=== PATIENT | female | born 1985 | race American Indian/Alaskan Native ===

== ENCOUNTER → 2016-10-10 | Outpatient (CLI) | payer SELFPAY | END | disposition home or self-care (01) | LOC: MW.CHFP 13:23 | PROVIDERS: ATTEND Physician Assistant | DX: J02.9 Acute pharyngitis, unspecified (principal) | CPT/HCPCS: 87880 ==

== ENCOUNTER → 2016-10-31 | Outpatient (CLI) | payer BC | END | disposition home or self-care (01) | LOC: MW.CHFP 13:04 | PROVIDERS: ATTEND Student in an Organized Health Care Education/Training Program | DX: R30.0 Dysuria (principal); R35.0 Frequency of micturition; N39.0 Urinary tract infection, site not specified | CPT/HCPCS: 81001; 87086; 87088; 87186 ==

== ENCOUNTER 2017-04-02 17:52 | Emergency (ER) | payer BC ==
[2017-04-02] MEDS ORDERED: Albuterol/Ipratropium 3.0-0.5 MG/3 ML Neb Soln NEB ONE (18:07)
[2017-04-02] MEDS ORDERED: Sodium Chloride 0.9% 10 ML Syringe FLUSH PRN (18:08)
[2017-04-02] MEDS ORDERED: Sodium Chloride 0.9% 2.5 ML Syringe FLUSH PRN (18:08)
--- NOTE | 2017-04-02 18:10 | EDM.PDOC ---
ED HPI GENERAL MEDICAL PROBLEM - General Chief Complaint: Respiratory Problem Stated Complaint: TROUBLE BREATHING Time Seen by Provider: 04/02/17 18:08 Source of Information: Reports: Patient History Limitations: Reports: No Limitations - History of Present Illness INITIAL COMMENTS - FREE TEXT/NARRATIVE: HISTORY AND PHYSICAL: []31-year-old female presenting with difficulty breathing History of Present Illness: []Patient has been coughing and sick for several days History of having bronchitis Review of Systems: As per history of present illness and below otherwise all systems reviewed and negative. Past medical history: As per history of present illness and as reviewed below otherwise noncontributory. Surgical history: As per history of present illness and as reviewed below otherwise noncontributory. Social history: No reported history of drug or alcohol abuse. Family history: As per history of present illness and as reviewed below otherwise noncontributory. Physical exam: Alert and oriented female answering questions in 3 word sentences wheezing is present. She does look nontoxic HEENT: Atraumatic, normocehpalic, pupils reactive, negative for conjunctival pallor or scleral icterus, mucous membranes moist, throat clear, neck supple, nontender, trachea midline. Palate membranes without erythema pharynx is erythematous Lungs: Crackles on auscultation, breath sounds equal bilaterally, chest non tender. Using is present Heart: S1S2, regular, negative for clicks, rubs, or JVD. Abdomen: Soft, nondistended, nontender. Negative for masses or hepatossplenmegaly. Negative for costovertebral tenderness. Pelvis: Stable nontender. Genitourinary: Deferred. Rectal: Deferred Extremities: Atraumatic, negative for cords or calf pain. Neurovascular unremarkable. Neuro: Awake, alert, oriented. Cranial nerves II through XII unremarkable. Cerebellum unremarkable. Motor and sensory unremarkable throughout. Exam nonfocal. Discussed with patient the negative chest x-ray for no pneumonia no other infiltrates or concerns. White count is elevated Diagnostics: [CBC CMP chest x-ray] Therapeutics: [DuoNeb] Impression: [Acute bronchitis] Plan: [Discharged to home Keep your appointment with Dr. Moss tomorrow as previously scheduled PREScriptions electronically sent to [facility]] Medrol dose pack Tessalon Perles Azithromycin Albuterol inhaler Definitive disposition and diagnosis as appropriate pending reevaluation and review of above. right ear Pain Score (Numeric/FACES): 7 - Related Data Allergies Allergy/AdvReac Type Severity Reaction Status Date / Time No Known Allergies Allergy Verified 04/02/17 18:00 Home Meds: Home Meds Albuterol Sulfate [Proair Hfa] 8.5 gm IH Q4HR PRN #1 hfa.aer.ad 04/02/17 [Rx] Azithromycin [IJD: Azithromycin] 250 mg PO DAILY #6 tab 04/02/17 [Rx] Benzonatate [Tessalon Perles] 100 mg PO QID PRN #40 cap 04/02/17 [Rx] Levothyroxine [Synthroid] 100 mcg PO ACBREAKFAST 04/02/17 [History] methylPREDNISolone [Medrol] 4 mg PO ASDIRECTED #1 dosepk 04/02/17 [Rx] Past Medical History - Past Health History Medical/Surgical History: Denies Medical/Surgical History Respiratory History: Reports: Bronchitis, Recurrent Endocrine/Metabolic History: Reports: Hypothyroidism Social & Family History - Family History Family Medical History: Noncontributory - Tobacco Use Smoking Status *Q: Current Every Day Smoker Years of Tobacco use: 11 Packs/Tins Daily: 1 - Recreational Drug Use Recreational Drug Use: No ED ROS GENERAL - Review of Systems Review Of Systems: ROS reveals no pertinent complaints other than HPI. ED EXAM, GENERAL - Physical Exam Exam: See Below (See dictation) Course - Vital Signs Last Recorded V/S: Last Vital Signs Temp 36.5 C 04/02/17 17:52 Pulse 99 04/02/17 17:52 Resp 20 04/02/17 17:52 BP 126/77 04/02/17 17:52 Pulse Ox 95 04/02/17 17:52 - Orders/Labs/Meds Orders: Active Orders 24 hr Category Date Time Status RT Aerosol Therapy [RC] ASDIRECTED Care 04/02/17 18:08 Active Chest 2V [CR] Stat Exams 04/02/17 18:08 Taken Sodium Chloride 0.9% [Saline Flush] Med 04/02/17 18:08 Active 10 ml FLUSH ASDIRECTED PRN Sodium Chloride 0.9% [Saline Flush] Med 04/02/17 18:08 Active 2.5 ml FLUSH ASDIRECTED PRN Saline Lock Insert [OM.PC] Stat Oth 04/02/17 18:08 Ordered Medication Orders Sodium Chloride (Saline Flush) 10 ml FLUSH ASDIRECTED PRN PRN Reason: Keep Vein Open Last Admin: 04/02/17 18:26 Dose: 10 ml Sodium Chloride (Saline Flush) 2.5 ml FLUSH ASDIRECTED PRN PRN Reason: Keep Vein Open Last Admin: 04/02/17 18:26 Dose: 2.5 ml Labs: Laboratory Tests 04/02/17 04/02/17 04/02/17 Range/Units 18:20 18:20 18:55 WBC 14.51 H (4.0-11.0) K/uL RBC 4.30 (4.30-5.90) M/uL Hgb 13.7 (12.0-16.0) g/dL Hct 38.9 (36.0-46.0) % MCV 90.5 (80.0-98.0) fL MCH 31.9 (27.0-32.0) pg MCHC 35.2 (31.0-37.0) g/dL RDW Std Deviation 40.9 (28.0-62.0) fl RDW Coeff of Oliverio 12 (11.0-15.0) % Plt Count 316 (150-400) K/uL MPV 10.30 (7.40-12.00) fL Neut % (Auto) 69.5 (48.0-80.0) % Lymph % (Auto) 21.6 (16.0-40.0) % [place] % (Auto) 5.4 (0.0-15.0) % Eos % (Auto) 3.2 (0.0-7.0) % Baso % (Auto) 0.3 (0.0-1.5) % Neut # (Auto) 10.1 H (1.4-5.7) K/uL Lymph # (Auto) 3.1 H (0.6-2.4) K/uL [place] # (Auto) 0.8 (0.0-0.8) K/uL Eos # (Auto) 0.5 (0.0-0.7) K/uL Baso # (Auto) 0.1 (0.0-0.1) K/uL Nucleated RBC % 0.0 /100WBC Nucleated RBCs # 0 K/uL Sodium 139 (136-146) mmol/L Potassium 3.9 (3.5-5.1) mmol/L Chloride 109 (98-110) mmol/L Carbon Dioxide 21 (21-31) mmol/L BUN 12 (6.0-23.0) mg/dL Creatinine 0.9 (0.6-1.5) mg/dL Est Cr Clr Drug Dosing 89.69 mL/min Estimated GFR (MDRD) > 60.0 ml/min Glucose 96 (60-110) mg/dL Calcium 9.6 (8.8-10.8) mg/dL Total Bilirubin 0.5 (0.1-1.5) mg/dL AST 28 (5-40) IU/L ALT 44 (8-54) IU/L Alkaline Phosphatase 67 (40-150) Total Protein 7.4 (6.0-8.0) g/dL Albumin 4.0 (3.5-5.0) g/dL Globulin 3.4 (2.0-3.5) g/dL Albumin/Globulin Ratio 1.2 L (1.3-2.8) Urine HCG, Qual NEGATIVE (NEGATIVE) Meds: Medications Generic Name Dose Route Start Last Admin Trade Name Freq PRN Reason Stop Dose Admin Sodium Chloride 10 ml 04/02/17 18:08 04/02/17 18:26 Saline Flush FLUSH 10 ml ASDIRECTED PRN Administration Keep Vein Open Sodium Chloride 2.5 ml 04/02/17 18:08 04/02/17 18:26 Saline Flush FLUSH 2.5 ml ASDIRECTED PRN Administration Keep Vein Open Discontinued Medications Generic Name Dose Route Start Last Admin Trade Name Freq PRN Reason Stop Dose Admin Albuterol/Ipratropium 3 ml 04/02/17 18:07 04/02/17 18:21 Duoneb 3.0-0.5 Mg/3 Ml NEB 04/02/17 18:08 3 ml ONETIME ONE Administration Methylprednisolone Sodium Succinate 125 mg 04/02/17 18:21 04/02/17 18:26 Solu-Medrol IVPUSH 04/02/17 18:22 125 mg ONETIME ONE Administration Departure - Departure Time of Disposition: 19:57 Disposition: Home, Self-Care 01 Condition: Good Clinical Impression: Acute bronchiolitis Qualifiers: Bronchiolitis organism: unspecified organism Qualified Code(s): J21.9 - Acute bronchiolitis, unspecified - Discharge Information Prescriptions: Albuterol Sulfate [Proair Hfa] 8.5 gm IH Q4HR PRN #1 hfa.aer.ad PRN Reason: Wheezing Azithromycin [IJD: Azithromycin] 250 mg PO DAILY #6 tab Benzonatate [Tessalon Perles] 100 mg PO QID PRN #40 cap PRN Reason: Cough methylPREDNISolone [Medrol] 4 mg PO ASDIRECTED #1 dosepk Referrals: Carlos Alberto Moss MD [Primary Care Provider] - Forms: ED Department Discharge - My Orders Last 24 Hours: My Active Orders 04/02/17 18:08 RT Aerosol Therapy [RC] ASDIRECTED Chest 2V [CR] Stat Sodium Chloride 0.9% [Saline Flush] 10 ml FLUSH ASDIRECTED PRN Sodium Chloride 0.9% [Saline Flush] 2.5 ml FLUSH ASDIRECTED PRN Saline Lock Insert [OM.PC] Stat - Assessment/Plan Last 24 Hours: My Active Orders 04/02/17 18:08 RT Aerosol Therapy [RC] ASDIRECTED Chest 2V [CR] Stat Sodium Chloride 0.9% [Saline Flush] 10 ml FLUSH ASDIRECTED PRN Sodium Chloride 0.9% [Saline Flush] 2.5 ml FLUSH ASDIRECTED PRN Saline Lock Insert [OM.PC] Stat
[2017-04-02] MEDS ORDERED: methylPREDNISolone Sodium Succinate 125 MG/2 ML SDV IVPUSH ONE (18:21)
[2017-04-02 18:51] LABS: CHLORIDE,CL 109 mmol/L (98-110); SODIUM,NA 139 mmol/L (136-146)
[2017-04-02 20:13] VITALS: BP 124/85
--- NOTE | 2017-04-03 11:32 | CR ---
EXAM DATE: 04/02/17 PATIENT'S AGE: 31 Patient: RILEY GHOSH Facility: [place], [place] Site . Site : 1985 Study: XRay Chest [id number] 7:31:57 PM Ordering Physician: Doctor Ryan Final Report: INDICATION: Pain, shortness of breath TECHNIQUE: Chest 2 views. COMPARISON: None FINDINGS: Cardiovascular and mediastinum: Heart size and vasculature are normal in caliber and appearance. Mediastinum is within normal limits. Lungs and pleural spaces: Lungs are clear. No sign of infiltrate or mass. No sign of pleural effusion. No pneumothorax. Bones and soft tissues: No significant findings. IMPRESSION: No sign of acute disease. Dictated by Jaquelin Lujan MD @ Apr 02 2017 7:44PM (Electronic Signature) Report Signed by Proxy. KAROL
== END 2017-04-02 20:10 | disposition home or self-care (01) ==
LOC: MW.ED 17:52
DX: J21.9 Acute bronchiolitis, unspecified (principal); J20.9 Acute bronchitis, unspecified; F17.210 Nicotine dependence, cigarettes, uncomplicated; E03.9 Hypothyroidism, unspecified; Z79.2 Long term (current) use of antibiotics
CPT/HCPCS: 36415; 71020; 80053; 81025; 85025; 94640; 96374; 99285; J2930; 99282

== ENCOUNTER 2017-11-13 07:36 | Day surgery (SDC) | payer BC, OTHER ==
[~2017-11-13 07:36] MED LIST: Lactated Ringers 1,000 ML IV SCH; Sodium Chloride 0.9% 10 ML Syringe FLUSH PRN; Sodium Chloride 0.9% 2.5 ML Syringe FLUSH PRN
--- NOTE | 2017-11-13 08:59 | PCM.PREANE ---
Preanesthetic Assessment - Anesthesia/Transfusion/Family Hx Anesthesia History: Prior Anesthesia Without Reaction Other Type of Anesthesia Reaction Comment: "mother didnt wake up for a week after her tonsillectomy" Family History of Anesthesia Reaction: No Transfusion History: No Prior Transfusion(s) - Review of Systems General: No Symptoms Pulmonary: No Symptoms Cardiovascular: No Symptoms Gastrointestinal: No Symptoms Neurological: No Symptoms Other: Reports: None - Physical Assessment NPO Status Date: 11/12/17 O2 Sat by Pulse Oximetry: 97 Respiratory Rate: 16 Vital Signs: Last Vital Signs Temp 36.4 C 11/13/17 07:56 Pulse 82 11/13/17 07:56 Resp 16 11/13/17 07:56 BP 114/58 L 11/13/17 07:56 Pulse Ox 97 11/13/17 07:56 Height: 1.7 m Weight: 113.398 kg ASA Class: 2 Mental Status: Alert & Oriented x3 Dentition: Reports: Normal Dentition ROM/Head Extension: Full Lungs: Clear to Auscultation, Normal Respiratory Effort Cardiovascular: Regular Rate, Regular Rhythm - Lab Values: Laboratory Last Values WBC 14.75 K/uL (4.0-11.0) H 11/12/17 15:12 RBC 3.72 M/uL (4.30-5.90) L 11/12/17 15:12 Hgb 11.7 g/dL (12.0-16.0) L 11/12/17 15:12 Hct 33.6 % (36.0-46.0) L 11/12/17 15:12 MCV 90.3 fL (80.0-98.0) 11/12/17 15:12 MCH 31.5 pg (27.0-32.0) 11/12/17 15:12 MCHC 34.8 g/dL (31.0-37.0) 11/12/17 15:12 RDW Std Deviation 41.7 fl (28.0-62.0) 11/12/17 15:12 RDW Coeff of Oliverio 13 % (11.0-15.0) 11/12/17 15:12 Plt Count 271 K/uL (150-400) 11/12/17 15:12 MPV 10.40 fL (7.40-12.00) 11/12/17 15:12 Nucleated RBC % 0.0 /100WBC 11/12/17 15:12 Nucleated RBCs # 0 K/uL 11/12/17 15:12 Blood Type A NEGATIVE 11/12/17 15:12 Antibody Screen NEGATIVE 11/12/17 15:12 - Allergies Allergies/Adverse Reactions: Allergies Allergy/AdvReac Type Severity Reaction Status Date / Time No Known Allergies Allergy Verified 11/10/17 12:03 - Anesthesia Plan Pre-Op Medication Ordered: None - Acknowledgements Anesthesia Type Planned: Spinal Pt an Appropriate Candidate for the Planned Anesthesia: Yes Alternatives and Risks of Anesthesia Discussed w Pt/Guardian: Yes Pt/Guardian Understands and Agrees with Anesthesia Plan: Yes PreAnesthesia Questionnaire - Past Health History Medical/Surgical History: Denies Medical/Surgical History HEENT History: Reports: Other (See Below) Other HEENT History: glasses Respiratory History: Reports: Bronchitis, Recurrent, COPD, Other (See Below) Other Respiratory History: early onset of COPD Gastrointestinal History: Reports: Other (See Below) Other Gastrointestinal History: Reflux in the past Genitourinary History: Reports: None 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 Musculoskeletal History: Reports: Fracture Other Musculoskeletal History: hx fx wrist Neurological History: Reports: Migraines Psychiatric History: Reports: None Endocrine/Metabolic History: Reports: Hypothyroidism, Obesity/BMI 30+ Hematologic History: Reports: None Immunologic History: Reports: None Oncologic (Cancer) History: Reports: None Dermatologic History: Reports: Other (See Below) Other Dermatologic History: acne - Past Surgical History Head Surgeries/Procedures: Reports: None HEENT Surgical History: Reports: Oral Surgery Female Surgical History: Reports: Breast Biopsy Musculoskeletal Surgical History: Reports: Shoulder Surgery Other Musculoskeletal Surgeries/Procedures:: rt shoulder surgery with cadaver joint - SUBSTANCE USE Smoking Status *Q: Former Smoker Tobacco Use Within Last Twelve Months: Cigarettes Recreational Drug Use History: No - HOME MEDS Home Medications: Home Meds Albuterol Sulfate [Proair Hfa] 8.5 gm IH Q4HR PRN #1 hfa.aer.ad 04/02/17 [Rx] Levothyroxine [Synthroid] 100 mcg PO ACBREAKFAST 04/02/17 [History] Fluticasone Propionate [Flonase Allergy Relief] 1 spray NASBOTH ASDIRECTED PRN 11/10/17 [History] PNV95/Ferrous Fumarate/FA [ Vitamins Tablet] 1 tab PO DAILY 11/10/17 [ History] - CURRENT (IN HOUSE) MEDS Current Meds: Current Medications Lactated Ringer's (Ringers, Lactated) 1,000 mls @ 125 mls/hr IV ASDIRECTED COREY Last Admin: 11/13/17 07:57 Dose: 125 mls/hr Sodium Chloride (Saline Flush) 10 ml FLUSH ASDIRECTED PRN PRN Reason: Keep Vein Open Sodium Chloride (Saline Flush) 2.5 ml FLUSH ASDIRECTED PRN PRN Reason: Keep Vein Open
[2017-11-13] MEDS ORDERED: fentaNYL 100 MCG/2 ML SDV ONE (09:50)
[2017-11-13] MEDS ORDERED: Morphine 4 MG/ML Syringe IVPUSH PRN (10:50)
[2017-11-13] MEDS ORDERED: Promethazine 25 MG/ML SDV IM PRN (10:50)
[2017-11-13] MEDS ORDERED: Ketorolac 30 MG/ML SDV IVPUSH ONE (10:50)
[2017-11-13] MEDS ORDERED: Ketorolac 30 MG/ML SDV IVPUSH PRN (10:50)
[2017-11-13] MEDS ORDERED: Ondansetron 4 MG/2 ML SDV IVPUSH PRN (10:50)
[2017-11-13] MEDS ORDERED: Acetaminophen/oxyCODONE 325-5 MG Tab PO PRN ×2 (10:50)
--- NOTE | 2017-11-13 10:54 | PCM.OPNOTE ---
- General Post-Op/Procedure Note Date of Surgery/Procedure: 11/13/17 Pre Op Diagnosis: Cervical In comptance Post-Op Diagnosis: Same Anesthesia Technique: Spinal Primary Surgeon: Anthony Silva EBL in mLs: 30 Complications: None Condition: Good
--- NOTE | 2017-11-13 10:54 | PCM.DCSUM1 ---
Discharge Summary - Discharge Data Discharge Date: 11/13/17 Discharge Disposition: Home, Self-Care 01 Condition: Good - Patient Instructions Diet: Usual Diet as Tolerated Activity: As Tolerated Showering/Bathing: October Shower Notify Provider of: Fever, Increased Pain - Discharge Plan Home Medications: Home Meds Albuterol Sulfate [Proair Hfa] 8.5 gm IH Q4HR PRN #1 hfa.aer.ad 04/02/17 [Rx] Levothyroxine [Synthroid] 100 mcg PO ACBREAKFAST 04/02/17 [History] Fluticasone Propionate [Flonase Allergy Relief] 1 spray NASBOTH ASDIRECTED PRN 11/10/17 [History] PNV95/Ferrous Fumarate/FA [ Vitamins Tablet] 1 tab PO DAILY 11/10/17 [ History] - General Info Date of Service: 11/13/17 Functional Status: Reports: Pain Controlled - Review of Systems General: Reports: No Symptoms HEENT: Reports: No Symptoms Pulmonary: Reports: No Symptoms Cardiovascular: Reports: No Symptoms Gastrointestinal: Reports: No Symptoms Genitourinary: Reports: No Symptoms Musculoskeletal: Reports: No Symptoms Skin: Reports: No Symptoms Neurological: Reports: No Symptoms Psychiatric: Reports: No Symptoms - Patient Data Vitals - Most Recent: Last Vital Signs Temp 36.4 C 11/13/17 07:56 Pulse 82 11/13/17 07:56 Resp 16 11/13/17 08:59 BP 114/58 L 11/13/17 07:56 Pulse Ox 97 11/13/17 08:59 Weight - Most Recent: 113.398 kg Lab Results - Last 24 hrs: Laboratory Results - last 24 hr 11/12/17 11/12/17 Range/Units 15:12 15:12 WBC 14.75 H (4.0-11.0) K/uL RBC 3.72 L (4.30-5.90) M/uL Hgb 11.7 L (12.0-16.0) g/dL Hct 33.6 L (36.0-46.0) % MCV 90.3 (80.0-98.0) fL MCH 31.5 (27.0-32.0) pg MCHC 34.8 (31.0-37.0) g/dL RDW Std Deviation 41.7 (28.0-62.0) fl RDW Coeff of Oliverio 13 (11.0-15.0) % Plt Count 271 (150-400) K/uL MPV 10.40 (7.40-12.00) fL Nucleated RBC % 0.0 /100WBC Nucleated RBCs # 0 K/uL Blood Type A NEGATIVE Antibody Screen NEGATIVE Med Orders - Current: Current Medications Lactated Ringer's (Ringers, Lactated) 1,000 mls @ 125 mls/hr IV ASDIRECTED COREY Last Admin: 11/13/17 07:57 Dose: 125 mls/hr Ketorolac Tromethamine (Toradol) 30 mg IVPUSH ONETIME ONE Stop: 11/13/17 10:51 Ketorolac Tromethamine (Toradol) 30 mg IVPUSH Q6H PRN PRN Reason: Pain (severe 7-10) Stop: 11/18/17 10:50 Morphine Sulfate (Morphine) 4 mg IVPUSH Q2H PRN PRN Reason: Pain (severe 7-10) Ondansetron HCl (Zofran) 4 mg IVPUSH Q6H PRN PRN Reason: Nausea/Vomiting Oxycodone/Acetaminophen (Percocet 325-5 Mg) 1 tab PO Q4H PRN PRN Reason: Pain (moderate 4-6) Oxycodone/Acetaminophen (Percocet 325-5 Mg) 2 tab PO Q4H PRN PRN Reason: Pain (moderate 4-6) Promethazine HCl (Phenergan) 25 mg IM Q6H PRN PRN Reason: Nausea/Vomiting Sodium Chloride (Saline Flush) 10 ml FLUSH ASDIRECTED PRN PRN Reason: Keep Vein Open Sodium Chloride (Saline Flush) 2.5 ml FLUSH ASDIRECTED PRN PRN Reason: Keep Vein Open Discontinued Medications Fentanyl (Sublimaze) Confirm Administered Dose 100 mcg .ROUTE .STK-MED ONE Stop: 11/13/17 09:51 Acetaminophen (Ofirmev) Confirm Administered Dose 100 mls @ as directed IV .STK- MED ONE Stop: 11/13/17 10:42 - Exam General: Reports: Alert, Oriented HEENT: Reports: Pupils Equal, Pupils Reactive, EOMI, Mucous Membr. Moist/[place] Neck: Reports: Supple Lungs: Reports: Clear to Auscultation, Normal Respiratory Effort Cardiovascular: Reports: Regular Rate, Regular Rhythm GI/Abdominal Exam: Normal Bowel Sounds, Soft, Non-Tender, No Organomegaly, No Distention, No Abnormal Bruit, No Mass, Pelvis Stable (Female) Exam: Normal External Exam, Normal Speculum Exam, Normal Bimanual Exam Rectal (Female) Exam: Normal Exam, Normal Rectal Tone Back Exam: Reports: Normal Inspection, Full Range of Motion Extremities: Normal Inspection, Normal Range of Motion, Non-Tender, No Pedal Edema, Normal Capillary Refill Skin: Reports: Warm, Dry, Intact Wound/Incisions: Reports: Healing Well Neurological: Reports: No New Focal Deficit Psy/Mental Status: Reports: Alert, Normal Affect, Normal Mood
--- NOTE | 2017-11-13 11:19 | PCM48HPAN ---
Post Anesthesia Note - EVALUATION WITHIN 48HRS OF ANESTHETIC Vital Signs in Normal Range: Yes Patient Participated in Evaluation: Yes Respiratory Function Stable: Yes Airway Patent: Yes Cardiovascular Function Stable: Yes Hydration Status Stable: Yes Pain Control Satisfactory: Yes Nausea and Vomiting Control Satisfactory: Yes Mental Status Recovered: Yes Resp Rate: 16
--- NOTE | 2017-11-13 11:19 | PCM.POSTAN ---
POST ANESTHESIA ASSESSMENT - MENTAL STATUS Mental Status: Alert, Oriented - RESPIRATORY Respiratory Status: Respiratory Rate WNL, Airway Patent, O2 Saturation Stable - CARDIOVASCULAR CV Status: Pulse Rate WNL, Blood Pressure Stable - GASTROINTESTINAL GI Status: No Symptoms - POST OP HYDRATION Hydration Status: Adequate & Stable
[2017-11-13 11:38] VITALS: BP 128/67
--- NOTE | 2017-11-13 14:12 | OR ---
SURGEON: Anthony Silva MD DATE OF PROCEDURE: 11/13/2017 PREOPERATIVE DIAGNOSES: Intrauterine at 18 weeks, cervical incompetence, history of miscarriage around 18 weeks. POSTOPERATIVE DIAGNOSES: Intrauterine at 18 weeks, cervical incompetence, history of miscarriage around 18 weeks. OPERATION PERFORMED: Lyle cerclage. SHUTTLE CAR OPERATOR: OR tech. ANESTHESIA: Spinal, Barbara Rajan and Dr. Santana. ESTIMATED BLOOD LOSS: Less than 25 mL. COMPLICATIONS: None. INDICATION FOR SURGERY: This patient have spontaneous loss of at 18 weeks. She presented to the emergency room with completely dilated without any pain and she ended up miscarrying. The patient is 18 weeks now. She is counseled about the cerclage. She consented for that and the patient is admitted for this purpose. PROCEDURE IN DETAIL: The patient was brought to the OR, properly identified and after adequate level of spinal anesthesia, the patient was prepped and draped in sterile fashion as usual, and a straight catheter was used to empty the bladder and a weighted speculum was placed in the vagina and ring forceps applied to the anterior and posterior lips of the cervix and using the M[place]il[place] band cerclage suture in a circular manner around the cervix was performed and tied with a due amount of tension to keep the cervix closed. Once that done, then the procedure was ended, and the patient tolerated the procedure well, went to recovery room in stable general condition. TELMA / CALLI /[id number]
== END 2017-11-13 12:08 | disposition home or self-care (01) ==
LOC: MW.SDS 07:36
PROVIDERS: ATTEND Obstetrics & Gynecology
DX: O34.32 Maternal care for cervical incompetence, second trimester (principal); O99.282 Endocrine, nutritional and metabolic diseases complicating pregnancy, second trimester; E03.9 Hypothyroidism, unspecified; O99.342 Other mental disorders complicating pregnancy, second trimester; F32.9 Major depressive disorder, single episode, unspecified; G43.909 Migraine, unspecified, not intractable, without status migrainosus; O99.352 Diseases of the nervous system complicating pregnancy, second trimester; O99.212 Obesity complicating pregnancy, second trimester; E66.9 Obesity, unspecified; F17.210 Nicotine dependence, cigarettes, uncomplicated; O99.332 Smoking (tobacco) complicating pregnancy, second trimester; O99.512 Diseases of the respiratory system complicating pregnancy, second trimester; J44.9 Chronic obstructive pulmonary disease, unspecified; Z3A.18 18 weeks gestation of pregnancy; Z79.899 Other long term (current) drug therapy; Z68.41 Body mass index [BMI] 40.0-44.9, adult
CPT/HCPCS: 36415; 85027; 86850; 86900; 86901; J3010; J7120